=== PATIENT | female | born 1990 | race Caucasian/White ===

== ENCOUNTER 2020-09-29 20:20 | Inpatient (IN) | payer MEDICAID, SELFPAY ==
[2020-09-29] VITALS (11 sets, daily range): BP systolic 118–157; BP diastolic 66–108; PULSE 100–137; RESP 18; TEMP 36.9–37.5; O2SAT 97; BMI 28.0
[2020-09-29] MEDS: Oxytocin 30 units/NS 500 ml 30 UNITS/500 ML IV.SOLN 334 UNITS IV (21:15)
[2020-09-29 21:42] LABS: Absolute Lymphocyte Count 1.03 X10^3/uL (0.83-4.51); Absolute Neutrophil Count 13.8 X10^3/uL (2.0-7.7); Basophil# 0.02 X10^3/uL; Basophil% 0.1 % (0-1); Eosinophil# 0.01 X10^3/uL; Eosinophils% 0.1 % (0-5); Hematocrit 33.1 % (37-47); Lymphocyte # 1.03 X10^3/ul (4.0); Lymphocyte % 6.6 % (19-41); Mean Corp Hgb Conc 33.2 g/dL (32-36); Mean Corpuscular Hgb 30.6 pg (27.0-32.0); Mean Corpuscular Volume 91.9 fL (81-99); Mean Platelet Vol. 10.7 fl (6.2-12.0); Monocyte# 0.64 X10^3/uL; Monocyte% 4.1 % (0-10); NRBC Flagged by Analyzer 0 % (0-5); Neutrophil # 13.81 X10^3/uL (2.7-7.7); Neutrophil % 88.7 % (47-70); Platelet Count 263 K/mm3 (150-450); RBC Distribution Width CV 12.6 % (11.6-14.6); RBC Distribution Width SD 41.7 fl (35.1-43.9); White Blood Count 15.6 K/mm3 (4.4-11.0)
--- NOTE | 2020-09-29 21:44 | PCM.HPOB.BLA ---
History and Physical Date of Admission: 09/29/20 Chief complaint: Home spontaneous vaginal delivery History of present illness: 30-year-old at 37 weeks and 6 days with MAGAN: 10/14/2020 arrives after delivery of male infant at home. Along with delivery of placenta soon after at home upon arrival of EMS. Patient with low back pain and cramping feeling of the need to go to the bathroom. Patient did not realize she was in labor. Denies chest pain, shortness of breath, nausea vomiting, headache, visual changes, right upper quadrant pain. Obstetric history: G1: Term G2: Term G3: Current Past medical history: Anxiety depression, PTSD Opioid dependence Past surgical history: Cholecystectomy LEEP Medications: vitamin Allergies: Amoxicillin (hives) Family history: Denies a history of DVT/PE Social history: Daily opioid user, used heroin this morning. Uses THC. Smoker three quarters of a pack per day. Denies alcohol use Review of systems: Besides the above pertinent positives a full review of systems was performed and found to be negative Physical exam: Vital Signs Pulse BP 09/29/20 21:45 116 H 140/87 H 09/29/20 21:28 120 H 128/89 H 09/29/20 21:13 116 H 131/89 H General: Normal-appearing no acute distress HEENT: Normocephalic atraumatic no cervical lymphadenopathy Cardiac: Regular rate and rhythm no murmurs rubs or gallops Respiratory: Clear to auscultation bilaterally no wheezes or crackles Abdomen: Soft, nontender, fundus firm and below umbilicus. Positive bowel sounds. No rebound tenderness or guarding Pelvic exam: Normal external genitalia, no obstetrical tears noted perineum intact. No periurethral tears, urethra intact. Minimal bleeding. Extremities: No peripheral edema normal peripheral pulses Psych: Normal affect normal demeanor nonpressured speech Diagnostic testing: Bedside ultrasound reveals thin endometrial stripe, Doppler negative for flow and endometrium. No large masses or clots noted panel per [facility] 05/24/2020: B positive antibody negative, RPR nonreactive, HIV negative, rubella immune Assessment and plan: 30-year-old had a home delivery of a term male . To deliver placenta at home also. According to EMS time of was 1934 and time of placenta was 1999. based on physical exam no obstetrical tears, no signs of retained products, uterus firm. Will admit to labor and delivery continue to monitor mom and baby. Run Pitocin per protocol. Poor care, seen in [place], will obtain records. Patient desires tubal ligation; offered Nexplanon, Depo, progesterone only pill, OCP. Patient states hair loss with hormonal contraception. Discussed and educated on tubal along with copper IUD. To follow-up at visit. Will obtain panel, step down nurse to see baby. We will continue to monitor signs of opioid withdrawal, social service consult to be placed.
--- NOTE | 2020-09-29 21:58 | PCM.OPRPT ---
Vaginal Delivery Maternal Presentation: - - Spontaneous delivery at home Patient arrived via squad after delivering baby and placenta at home. Per EMS time of delivery was 1933 and time of delivery of placenta was 1999. Patient with lower back pain feelings need to go the bathroom, did not realize she was in labor. Soon after delivered. And delivery placenta upon standing at the arrival of EMS team. Final MAGAN: 10/14/20 - Unknown how MAGAN was confirmed. Care in [place], records Gestational age: 37 Weeks and 6 Days Date of Procedure: 09/29/20 Pre-Operative Diagnosis: Term Post-Operative Diagnosis: Term Surgery/ Procedure Performed: Spontaneous Vaginal Delivery Type of Anesthesia: None Description of Procedure: No procedure performed as patient delivered baby and placenta at home. No Apgars or EBL is noted. Please refer to the above 'Maternal Presentation'. Upon examination after arrival to the hospital; no obstetrical lacerations noted bleeding minimal to none. Uterus firm and below umbilicus. Bedside ultrasound shows endometrial stripe, negative color Doppler. Placenta intact. Placental Delivery Description: Spontaneous - At home Cord Vessel Description: 3 Vessels Estimated Blood Loss: Unknown Infant A gender: Male Medications given after delivery: IV Pitocin
--- NOTE | 2020-09-29 22:05 | DCINST_ITS ---
Discharge Diet: No Restrictions Discharge Activity: Return to Normal Activity, May Drive, May not drive while taking narcotic pain medications., May Shower May resume sexual activity in: 2 weeks Weight Bearing Status: Weight bearing as tolerated Call your doctor if your incision/area has: Foul Smelling Discharge Call your doctor if you observe: Fever of 101 or Higher, Shortness of breath, Chest pain Additional Instructions: If you experience any of the following, contact your healthcare provider. * Bleeding that soaks a pad every hour for 2 hours * Fever 100.4 or higher * Unrelieved incision or abdominal pain * Swelling, redness, discharge or bleeding from your incision or episiotomy site * Your incision begins to separate * Problems urinating (including inability to urinate or burning while urinating). * Visual changes * Severe headache * Flu-like symptoms * Pain or redness in one of both of your breasts * Pain, warmth, tenderness or swelling in your legs, especially the calf area * Frequent nausea and vomiting * Symptoms of depression or anxiety If you experience any of the following, call 911 or go to the nearest Emergency Room. * Chest pain * Problems breathing * Seizure activity * Partial or complete paralysis of a body part, slurred speech, weakness or drooping of the face, or a sudden inability to walk or hold your balance Allergies/Adverse Reactions: Allergies amoxicillin [From Augmentin] Allergy (Verified 09/29/20 21:06) Hives clavulanic acid [From Augmentin] Allergy (Verified 09/29/20 21:06) Hives Medications to take at Discharge Vits [Prenatabs FA] 1 tab PO DAILY 09/29/20 Please Follow Up With: Bear Navarro MD When: 2-3 weeks Primary Care Physician: Care Physician,No Primary [Primary Care Provider] - Test Results: Test results from this visit will be discussed in further detail at your follow- up appointment, if applicable. Proposed Discharge Date: 09/30/20
--- NOTE | 2020-09-29 22:05 | PCM.DCVAG ---
Discharge Diet: No Restrictions Discharge Activity: Return to Normal Activity, May Drive, May not drive while taking narcotic pain medications., May Shower May resume sexual activity in: 2 weeks Weight Bearing Status: Weight bearing as tolerated Call your doctor if your incision/area has: Foul Smelling Discharge Call your doctor if you observe: Fever of 101 or Higher, Shortness of breath, Chest pain Additional Instructions: If you experience any of the following, contact your healthcare provider. Bleeding that soaks a pad every hour for 2 hours Fever 100.4 or higher Unrelieved incision or abdominal pain Swelling, redness, discharge or bleeding from your incision or episiotomy site Your incision begins to separate Problems urinating (including inability to urinate or burning while urinating). Visual changes Severe headache Flu-like symptoms Pain or redness in one of both of your breasts Pain, warmth, tenderness or swelling in your legs, especially the calf area Frequent nausea and vomiting Symptoms of depression or anxiety If you experience any of the following, call 911 or go to the nearest Emergency Room. Chest pain Problems breathing Seizure activity Partial or complete paralysis of a body part, slurred speech, weakness or drooping of the face, or a sudden inability to walk or hold your balance Allergies/Adverse Reactions: Allergies amoxicillin [From Augmentin] Allergy (Verified 09/29/20 21:06) Hives clavulanic acid [From Augmentin] Allergy (Verified 09/29/20 21:06) Hives Medications to take at Discharge Vits [Prenatabs FA] 1 tab PO DAILY 09/29/20 Please Follow Up With: Bear Navarro MD When: 2-3 weeks Primary Care Physician: Care Physician,No Primary [Primary Care Provider] - Test Results: Test results from this visit will be discussed in further detail at your follow-up appointment, if applicable. Proposed Discharge Date: 09/30/20
[2020-09-29] MEDS: Ibuprofen 600 MG Tablet PO (22:31)
[2020-09-29 22:57] LABS: HIV - WCH Non-Reactive (Nonreactive); Hepatitis B Surface Antigen Non-Reactive (Nonreactive)
--- NOTE | 2020-09-29 23:04 | NURSING ---
Patient states that she does not have custody of older children, daughters Carl and Wagner, 10 year old and 5 year old, they both live with their fathers. Patient states that she sees younger daughter regularly.
[2020-09-29] MEDS: 0.9% Saline Lock 10 ML Syringe IV (23:49)
[2020-09-30] VITALS (12 sets, daily range): BP systolic 134–158; BP diastolic 84–113; PULSE 76–108; RESP 14–20; TEMP 36.5–36.7; O2SAT 98–100; BMI 26.2; BMI 26.3
[2020-09-30 00:10] LABS: Hepatitis C Antibody REACTIVE (Nonreactive)
[2020-09-30 01:30] LABS: Amphetamine Urine VISTA POSITIVE (<1000 ng/mL); Barbiturate Urine VISTA NEGATIVE (< 200 ng/mL); Benzodiazepine Urine VISTA NEGATIVE (< 200 ng/mL); Cocaine Urine VISTA NEGATIVE (< 300 ng/mL); Ecstacy Urine VISTA POSITIVE (< 500 ng/mL); Methadone Urine VISTA NEGATIVE (< 300 ng/mL); PCP Urine VISTA NEGATIVE (< 25 ng/mL); THC Urine VISTA POSITIVE (< 50 ng/mL); Vista UDS pH Range 6
--- NOTE | 2020-09-30 01:44 | NURSING ---
Patient reports that her legs are getting restless and that she feels like she is withdrawing. Telephone order received to administer Ativan 1 mg IV x1. Also, send placenta for studies per Dr. Navarro.
[2020-09-30] MEDS: LORazepam 2 MG/ML Syringe 1 MG IV (02:06)
[2020-09-30] MEDS: 0.9% Saline Lock 10 ML Syringe IV (02:06)
[2020-09-30] MEDS: Ibuprofen 600 MG Tablet PO ×2 (04:12→15:35)
[2020-09-30 09:09] LABS: Absolute Lymphocyte Count 1.76 X10^3/uL (0.83-4.51); Absolute Neutrophil Count 8.7 X10^3/uL (2.0-7.7); Basophil# 0.02 X10^3/uL; Basophil% 0.2 % (0-1); Eosinophil# 0.05 X10^3/uL; Eosinophils% 0.4 % (0-5); Hematocrit 32.7 % (37-47); Hemoglobin 10.6 g/dL (12.0-15.0); Lymphocyte # 1.76 X10^3/ul (4.0); Lymphocyte % 15.6 % (19-41); Mean Corp Hgb Conc 32.4 g/dL (32-36); Mean Corpuscular Hgb 30.3 pg (27.0-32.0); Mean Corpuscular Volume 93.4 fL (81-99); Mean Platelet Vol. 10.3 fl (6.2-12.0); Monocyte# 0.69 X10^3/uL; Monocyte% 6.1 % (0-10); NRBC Flagged by Analyzer 0 % (0-5); Neutrophil # 8.72 X10^3/uL (2.7-7.7); Neutrophil % 77.3 % (47-70); Platelet Count 228 K/mm3 (150-450); RBC Distribution Width CV 12.8 % (11.6-14.6); RBC Distribution Width SD 43.1 fl (35.1-43.9); White Blood Count 11.3 K/mm3 (4.4-11.0)
[2020-09-30 10:23] LABS: Rubella IgG Reactive (Nonreactive)
--- NOTE | 2020-09-30 10:44 | PCM.PN.OB ---
Subjective: No overnight complaints. Pain well controlled. Minimal lochia. Patient overnight felt some restless legs agitation and anxiety feelings of opiate withdrawal. Now minimal agitation after Ativan - Physical Exam Vitals/I&O's: Vital Signs Temp Pulse Resp BP Pulse Ox 98.1 F 94 16 138/93 H 98 09/30/20 08:17 09/30/20 08:17 09/30/20 08:17 09/30/20 08:17 09/30/20 08:17 Oxygen Delivery Method Room Air Weight: 190 lb Body Mass Index (BMI) 28.0 Intake and Output for Last 24 Hours 09/28/20 09/29/20 09/30/20 23:59 23:59 23:59 Intake Total 500 / 500 Balance 500 / 500 General: Alert, Oriented x3, Cooperative, No apparent distress HEENT: Atraumatic, PERRLA, Normocephalic Oral: Moist Mucosa Neck: Supple Abdomen: Bowel Sounds Present, Soft, Non Tender, Gravid - Fundus is firm and below umbilicus Extremities: No clubbing, No cyanosis, No edema Psych/Mental Status: Normal Affect, Appropriate, Alert and oriented to time, place, person, mood and affect Laboratory Results 09/29/20 00:11: HCV RNA Quant (PCR) Pending 09/29/20 21:15: WBC 15.6 H, RBC 3.60 L, Hgb 11.0 L, Hct 33.1 L, MCV 91.9, MCH 30.6, MCHC 33.2, RDW Std Deviation 41.7, RDW Coeff of Vishnu 12.6, Plt Count 263, MPV 10.7, Immature Gran % (Auto) 0.400, Neut % (Auto) 88.7 H, Lymph % (Auto) 6.6 L, Latimer % (Auto) 4.1, Eos % (Auto) 0.1, Baso % (Auto) 0.1, Absolute Neuts (auto) 13.8 H, Absolute Lymphs (auto) 1.03, Nucleated RBC % 0 09/29/20 21:15: Rubella IgG Antibody Reactive 09/29/20 21:15: RPR Pending 09/29/20 21:15: Blood Type B POSITIVE, Antibody Screen NEGATIVE 09/29/20 21:15: Hep Bs Antigen Non-Reactive, Hepatitis C Antibody REACTIVE, HIV 1&2 Antibody Non-Reactive 09/30/20 01:00: Urine Opiates Screen NEGATIVE, Urine Methadone Screen NEGATIVE, Ur Barbiturates Screen NEGATIVE, Ur Phencyclidine Scrn NEGATIVE, Ur Amphetamines Screen POSITIVE H, U Methamphetamin-MDMA POSITIVE H, U Benzodiazepines Scrn NEGATIVE, Urine Cocaine Screen NEGATIVE, U Cannabinoids Screen POSITIVE H, Ur Drug Screen Comment 09/30/20 01:00: U Amphetamines Confirm Pending 09/30/20 08:51: WBC 11.3 H, RBC 3.50 L, Hgb 10.6 L, Hct 32.7 L, MCV 93.4, MCH 30.3, MCHC 32.4, RDW Std Deviation 43.1, RDW Coeff of Vishnu 12.8, Plt Count 228, MPV 10.3, Immature Gran % (Auto) 0.400, Neut % (Auto) 77.3 H, Lymph % (Auto) 15.6 L, Latimer % (Auto) 6.1, Eos % (Auto) 0.4, Baso % (Auto) 0.2, Absolute Neuts (auto) 8.7 H, Absolute Lymphs (auto) 1.76, Nucleated RBC % 0 Current Medications Acetaminophen (Acetaminophen 500 Mg Tablet) 1,000 mg PO Q8H PRN PRN PRN Reason: Pain Score 1-3 Bisacodyl (Bisacodyl 10 Mg Suppository) 10 mg RECTAL UD PRN PRN Reason: If no BM Dibucaine (Dibucaine 30 Gm Tube) 1 applic TOPICAL TID PRN PRN; Protocol PRN Reason: Discomfort Hydrocortisone (Hydrocortisone 2.5% Crm) 1 applic TOPICAL TID PRN PRN; Protocol PRN Reason: Discomfort Lactated Ringer's () 500 mls @ 999 mls/hr IV .Q31M PRN PRN Reason: Epidural Lactated Ringer's () 500 mls @ 999 mls/hr IV .Q31M PRN PRN Reason: Corrective Measures Ibuprofen (Ibuprofen 600 Mg Tablet) 600 mg PO Q6H PRN PRN PRN Reason: Pain Score 1-3 Last Admin: 09/30/20 04:12 Dose: 600 mg Documented by: Ondansetron HCl (Ondansetron 4 Mg/2 Ml Vial) 4 mg IV Q4H PRN PRN PRN Reason: Nausea Senna/Docusate Sodium (Senna/Docusate Sodium 1 Tablet) 1 - 2 tablet PO DAILY PRN PRN PRN Reason: Constipation Simethicone (Simethicone 80 Mg Tablet) 80 mg PO PCHS PRN PRN Reason: Indigestion/Stomach pain Sodium Chloride (0.9% Saline Lock 10 Ml Syringe) 5 - 15 ml IV UD PRN PRN Reason: SALINE FLUSH Last Admin: 09/30/20 02:06 Dose: 10 ml Documented by: Sodium Chloride (0.9% Saline Lock 10 Ml Syringe) 10 - 40 ml IV X1 PRN PRN Reason: SALINE FLUSH Medical Necessity - Tobacco Use Smoking Status: Light Smoker (<10/day) Assessment/Plan day 1 status post spontaneous vaginal delivery at home. Pain well controlled. Bottlefeeding. COWS score 4. Discussed opiate use, patient feels improved after Ativan. Discussed buprenorphine and naloxone to prevent opioid withdrawal. Patient would like to discussed with social work about inpatient detoxification program. Cabana Attendant suggest 7-day stay for baby for monitoring. Patient okay to discharge home or moved to start hotel status at any point, recovery in a stable condition. Based on patient's decisions and options for living, as patient is losing home on 09/01/2020, and decision on opiate detoxification program will decide medication/discharge plan.
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
--- NOTE | 2020-09-30 12:30 | NURSING ---
patient cry and rocking back and forth on bed. states, my skin feels like it's crawling, i feel anxious and angry. i just want to feel mellow. emotional support provided by this nurse. dr. veronica lim updated on patient's condition. see xanax order. will continue to monitor.
[2020-09-30] MEDS: ALPRAZolam 0.5 MG Tablet 1 MG PO (12:50)
--- NOTE | 2020-09-30 18:00 | CASEMGMT ---
Social Work Note Labor and Delivery Unit Reason for Intervention: Communication with [facility] Syeda Judge ([phone]; [phone]); Collaboration with nursing, OBGYN, and pediatrics; ongoing work with MOB to help determine next steps in care. Summary: Spoke with Syeda Judge regarding patient/mother of baby (MOB) and infant. [facility] already screened in case for investigation, but accepted additional report information from this remote mortgage underwriter (a mandated cut off machine operator). Brief maternal and histories provided. Drug screen results provided, updated to baby's CRUZ scores, and discussion with MOB about possibly entering a detox program. Lars to come to hospital t see MOB today. Met with MOB in room. MOB reported to be leaning towards detox, but wants to talk a bit further with her father and also with children services. Release of information signed by MOB to [facility]. Spoke with Yudy at [facility] for the RAMP program. If MOB admits to RAMP someone can see over the weekend. There is possibility for residential availability should MOB agree to and need this level of care. [facility] to unit to see MOB. After meeting, this remote mortgage underwriter spoke with Syeda who reports MOB and baby to be referred to the START program through [facility]. [place] Judge reports intent at this times is to remove baby when the baby is ready for discharge. This remote mortgage underwriter learned from [facility] that baby has been admitted to the [facility]. Updated [place] Judge to this as well. This remote mortgage underwriter received a call later in the afternoon from Adrienne Noriega at [facility] reporting concern that MOB allegedly making calls in the community asking for drugs to be smuggled into the hospital. This information passed along to this remote mortgage underwriter for safety matters on the unit. This remote mortgage underwriter met with MOB several times this afternoon to provide support as well as to help work through MOB's intentions for own recovery. This remote mortgage underwriter gently confronted MOB about the alert this remote mortgage underwriter received from [facility]. Reviewed with MOB the rules of the hospital and that active substance use is not allowed, that staff is actively trying to work with MOB to get MOB help (if this is what MOB wants) but that staff also have to look at the overall safety of the unit. After much discussion with MOB, MOB agreed to enter the hospital's RAMP program for detox. This remote mortgage underwriter reviewed rules and expectations to enter the program. Also discussed with MOB that while in detox will not be allowed to leave the medical unit to go to SCN (had discussed with senior quality manager of the medical unit the protocols for RAMP patients). Discussed that MOB can see and hold baby before going into RAMP and then can work it out to see baby again when discharged from the RAMP program. Called Yudy at [facility] and left message. [facility] treatment nav[facility], Liza, and provided official referral. Liza will see MOB on 10.01.2020 for assessment. Updated [facility] that children services is involved, as well as MOB inquiring about baby being allowed at the residential facility, though that MOB is aware of [facility] current intent to remove . This remote mortgage underwriter inquired whether MOB will be able to visit baby while in residential, if this is what MOB decides to do once detox is completed. Liza agrees to assess situation. This remote mortgage underwriter collaborated with OBGYN Dr. Bear Navarro and nursing staff through out the day today. Updated pediatrics as well. Assessment: MOB continues to be cooperative with social media director and staff. Visibly emotional throughout the day, crying and discussing emotions related to drug use, how the rest of the family will respond to MOB, and how baby is being impacted by maternal drug use in . MOB voiced several times remorse for impact to baby regarding MOB's drug use and now being in the SCN. Much emotional support offered to MOB this date, redirection efforts to keep MOB focused on own self care, and how self care and recovery can potentially impact MOB's life in a positive way. Empowered MOB to make own decisions while also setting clear boundaries regarding hospital rules and protocols. Plan: Baby is in the SCN for care and treatment of escalating CRUZ scores. Social work will follow baby in the SCN for appropriate disposition. MOB is agreeing to enter the RAMP program and see about aftercare recommendations once detox is completed. -NJ Roach, CADASTRAL SURVEYOR
--- NOTE | 2020-09-30 18:42 | HP.PCM_ITS ---
Problem List (1) Tobacco abuse Status: Chronic (2) Acute opioid withdrawal Status: Acute (3) Status post vaginal delivery Status: Acute (4) Opioid dependence Status: Chronic History of Present Illness Date of Admission: 09/30/20 Chief Complaint: Acute opiate withdrawal. The patient is a 30 year old F with past medical history as mentioned above who had normal vaginal delivery yesterday, had a history of opioid dependence and she requested admission to the medical floor for acute opioid withdrawal for medical stabilization. Patient delivered yesterday and her baby is having acute opiate withdrawal and has been on IV morphine drip. She expressed her interest in going into detoxification program. She states that she has been using IV heroin daily over the last 10 years and her last use was yesterday morning. She admitted smoking marijuana occasionally. Her symptoms are body aches and pains, all over, generalized, mild pain, associated with anxiety and restlessness and without aggravating or relieving factors. She mentioned that she went to opiate withdrawal treatment as outpatient but never for acute detoxification. She mentioned that she still having minimal vaginal bleeding. Denies significant abdominal pain. Her vital signs are stable, afebrile. CBC from today reviewed, revealed mild leukocytosis, hemoglobin of 10.6 g deciliter. Urine drug screen was positive for amphetamines, methamphetamines and cannabinoids. She is being transferred to [facility] floor for acute opioid withdrawal for medical stabilization. Past Medical History Past Medical History (Chronic Problems): Chronic Problems Tobacco abuse (Chronic) Opioid dependence (Chronic) Allergies amoxicillin [From Augmentin] Allergy (Verified 09/29/20 21:06) Hives clavulanic acid [From Augmentin] Allergy (Verified 09/29/20 21:06) Hives Home Medications: Ambulatory Orders Medication Instructions Recorded Vits [Prenatabs FA] 1 tab PO DAILY 09/29/20 Surgical History: cholecystectomy Psychiatric History: No pertinent psych hx BOILER/CHILLER TECHNICIAN History: No pertinent BOILER/CHILLER TECHNICIAN history Smoking Status: Light Smoker (<10/day) Tobacco Use: Cigarettes Alcohol: None Drugs: Heroin - *Family History Maternal History Items: No pertinent history Paternal History Items: No pertinent history Review of Systems Constitutional: Denies: Anorexia, Chills, Fever, Weakness Eyes: Denies: Blurred vision, Double vision, Drainage, Redness HEENT: Denies: Difficulty Hearing, Ear Pain, Eye Pain, Nasal Congestion, Sore Throat Cardiovascular: Denies: Chest Pain, Chest Pressure, Edema, Heaviness, Light Headedness, Palpitations, Syncope Respiratory: Denies: Cough, Hemoptysis, Pleuritic Pain, Shortness of Breath, Sputum production, Wheezing Gastrointestinal: Denies: Abdominal Pain, Constipation, Diarrhea, Nausea, Vomiting Genitourinary: Denies: Dysuria, Frequency, Hematuria Gynecological: Reports: Vaginal bleeding Musculoskeletal: Denies: Arm Pain, Back Pain, Foot Pain Skin: Denies: Dryness, Rash Neurological: Denies: Balance problems, Blurred vision, Double vision, Change in Speech, Slurred speech, Confusion, Headaches, Incoordination Psychiatric: Denies: Anxiety, Depression Endocrine: Denies: Change in Body Habitus, Polydipsia, Polyuria VTE Information - Inpt Only VTE Present on Admission: No VTE Mechan Device Prophylaxis: None VTE Pharm Prophylaxis ordered?: No - Physical Exam Vitals/I&O's: Vital Signs Temp Pulse Resp BP Pulse Ox 97.9 F 91 18 139/88 H 100 09/30/20 15:37 09/30/20 15:37 09/30/20 15:37 09/30/20 15:37 09/30/20 15:37 Oxygen Delivery Method Room Air Weight: 190 lb Body Mass Index (BMI) 28.0 Intake and Output for Last 24 Hours 09/28/20 09/29/20 09/30/20 23:59 23:59 23:59 Intake Total 500 / 500 Balance 500 / 500 General: Alert, Oriented x3, Cooperative, No apparent distress HEENT: Atraumatic, PERRLA, EOMI, Normocephalic Oral: Moist Mucosa, No Gingival or Mucosal Lesions/ Ulcerations Neck: Supple, No JVD, Negative Carotid Bruits, Trachea Midline, Thyroid Normal Size and Texture Lungs: Clear to auscultation, Normal air movement, No rhonchi, No wheeze, No rales Cardiovascular: Regular rate, Regular Rhythm, Normal S1, Normal S2, PMI Normal Abdomen: Bowel Sounds Present, Soft, Non Tender, Non-Distended, No Hepato- splenomegaly Extremities: No clubbing, No cyanosis, Edema Skin: No rashes, No breakdown Lymphatic: No Cervical, Supraclavicular, or Inguinal Adenopathy Neurological: Cranial nerves II-XII grossly intact, Motor Exam 5/5 strength throughout Psych/Mental Status: Normal Affect, Appropriate Laboratory Results 09/29/20 00:11: HCV RNA Quant (PCR) Pending 09/29/20 21:15: WBC 15.6 H, RBC 3.60 L, Hgb 11.0 L, Hct 33.1 L, MCV 91.9, MCH 30.6, MCHC 33.2, RDW Std Deviation 41.7, RDW Coeff of Vishnu 12.6, Plt Count 263, MPV 10.7, Immature Gran % (Auto) 0.400, Neut % (Auto) 88.7 H, Lymph % (Auto) 6.6 L, Norman % (Auto) 4.1, Eos % (Auto) 0.1, Baso % (Auto) 0.1, Absolute Neuts (auto) 13.8 H, Absolute Lymphs (auto) 1.03, Nucleated RBC % 0 09/29/20 21:15: Rubella IgG Antibody Reactive 09/29/20 21:15: RPR Pending 09/29/20 21:15: Blood Type B POSITIVE, Antibody Screen NEGATIVE 09/29/20 21:15: Hep Bs Antigen Non-Reactive, Hepatitis C Antibody REACTIVE, HIV 1&2 Antibody Non-Reactive 09/30/20 01:00: Urine Opiates Screen NEGATIVE, Urine Methadone Screen NEGATIVE, Ur Barbiturates Screen NEGATIVE, Ur Phencyclidine Scrn NEGATIVE, Ur Amphetamines Screen POSITIVE H, U Methamphetamin-MDMA POSITIVE H, U Benzodiazepines Scrn NEGATIVE, Urine Cocaine Screen NEGATIVE, U Cannabinoids Screen POSITIVE H, Ur Drug Screen Comment 09/30/20 01:00: U Amphetamines Confirm Pending 09/30/20 08:51: WBC 11.3 H, RBC 3.50 L, Hgb 10.6 L, Hct 32.7 L, MCV 93.4, MCH 30.3, MCHC 32.4, RDW Std Deviation 43.1, RDW Coeff of Vishnu 12.8, Plt Count 228, MPV 10.3, Immature Gran % (Auto) 0.400, Neut % (Auto) 77.3 H, Lymph % (Auto) 15.6 L, Norman % (Auto) 6.1, Eos % (Auto) 0.4, Baso % (Auto) 0.2, Absolute Neuts (auto) 8.7 H, Absolute Lymphs (auto) 1.76, Nucleated RBC % 0 Current Medications Acetaminophen (Acetaminophen 500 Mg Tablet) 1,000 mg PO Q8H PRN PRN PRN Reason: Pain Score 1-3 Bisacodyl (Bisacodyl 10 Mg Suppository) 10 mg RECTAL UD PRN PRN Reason: If no BM Dibucaine (Dibucaine 30 Gm Tube) 1 applic TOPICAL TID PRN PRN; Protocol PRN Reason: Discomfort Hydrocortisone (Hydrocortisone 2.5% Crm) 1 applic TOPICAL TID PRN PRN; Protocol PRN Reason: Discomfort Lactated Ringer's () 500 mls @ 999 mls/hr IV .Q31M PRN PRN Reason: Epidural Lactated Ringer's () 500 mls @ 999 mls/hr IV .Q31M PRN PRN Reason: Corrective Measures Ibuprofen (Ibuprofen 600 Mg Tablet) 600 mg PO Q6H PRN PRN PRN Reason: Pain Score 1-3 Last Admin: 09/30/20 15:35 Dose: 600 mg Documented by: Ondansetron HCl (Ondansetron 4 Mg/2 Ml Vial) 4 mg IV Q4H PRN PRN PRN Reason: Nausea Senna/Docusate Sodium (Senna/Docusate Sodium 1 Tablet) 1 - 2 tablet PO DAILY PRN PRN PRN Reason: Constipation Simethicone (Simethicone 80 Mg Tablet) 80 mg PO PCHS PRN PRN Reason: Indigestion/Stomach pain Sodium Chloride (0.9% Saline Lock 10 Ml Syringe) 5 - 15 ml IV UD PRN PRN Reason: SALINE FLUSH Last Admin: 09/30/20 02:06 Dose: 10 ml Documented by: Sodium Chloride (0.9% Saline Lock 10 Ml Syringe) 10 - 40 ml IV X1 PRN PRN Reason: SALINE FLUSH Assessment/Plan All Active Problems Acute opioid withdrawal (Acute) Status post vaginal delivery (Acute) This is a 30 years old female patient who admitted after she had normal vaginal delivery at home, [facility], had a history of opioid dependence, has been going through withdrawal symptoms and she requested admission for acute opioid withdrawal for medical stabilization. #1 acute opiate withdrawal: Patient has been using IV heroin over the last 3 years. Urine drug screen was positive for amphetamines, methamphetamines and cannabinoids. CBC reviewed as above. Her vital signs are stable. Plan: Admit to [facility], initiate opioid withdrawal protocol with tapering Subutex, as needed Catapres, Bentyl, Neurontin, Vistaril, Imodium, methocarbamol, Zofran and trazodone, consult 180 program. #2 status post normal vaginal delivery: Currently, she still having minimal vaginal bleeding. Abdominal examination is benign, stable. We will consult SET OFF PRESS OPERATOR if needed. #3 tobacco abuse: NicoDerm patch. #4 DVT prophylaxis: Low risk patient, no prophylaxis indicated. This note was generated with [employer] dictation software. It may contain incorrect words, spelling, and punctuation that were not noted in checking the note before signing. Inpatient E&M: 95158 Init Hosp L2
[2020-09-30 21:46] LABS: ALB/GLOB Ratio 0.5 RATIO (0.9-2.4); AST(SGOT) 24 U/L (15-37); Alanine Aminotransfer ALT/SGPT 13 U/L (13-56); Alkaline Phosphatase 189 U/L (45-117); Anion Gap 3 (5-15); BUN 11 mg/dL (7-18); BUN/Creat Ratio 13.9 RATIO (10-20); Calcium,Total 8.7 mg/dL (8.5-10.1); Chloride 111 mmol/L (98-107); Creatinine, Serum 0.79 mg/dL (0.55-1.02); EST Glomerular Filtration Rate 90 mL/min (>60); Est Glom Filt Rate - Afr Amer 109 mL/min (>60); Estimated Creatinine Clearance 107.83 ml/min; Globulin 4.1 g/dL (2.2-4.2); Glucose 78 mg/dL (74-106); Potassium 4.2 mmol/L (3.5-5.1); Protein, Total 6.1 g/dL (6.4-8.2); Sodium Level 140 mmol/L (136-145)
[2020-09-30] MEDS: Acetaminophen 500 MG Tablet PO (22:16)
[2020-09-30] MEDS: traZODone 100 MG Tablet PO (22:16)
[2020-09-30] MEDS: Methocarbamol 750 MG Tablet 1500 MG PO (22:16)
[2020-09-30] MEDS: Buprenorphine HCl 2 MG TAB.SUBL SL (23:21)
[2020-10-01] MEDS: hydrOXYzine PAM 25 MG Capsule 50 MG PO ×3 (00:56→16:47)
[2020-10-01 02:15] VITALS: BP 127/90; PULSE 64; RESP 14; TEMP 36.3; O2SAT 100
[2020-10-01] MEDS: Buprenorphine HCl 2 MG TAB.SUBL SL ×3 (05:50→21:46)
[2020-10-01] MEDS: Methocarbamol 750 MG Tablet 1500 MG PO ×3 (05:50→21:46)
[2020-10-01] MEDS: Ondansetron 8 MG Tablet PO (05:54)
[2020-10-01] MEDS: Acetaminophen 325 MG Tablet 650 MG PO ×2 (09:57→21:45)
--- NOTE | 2020-10-01 10:07 | NURSING ---
Dr. Pandey saw patient, she is emotional and tearful about not being able to see her baby. Dr. De La Torre wants nursing staff to arrange mom to see her baby. feels patient is too emotional to focus on herself and needs to greene with her baby.
[2020-10-01 13:54] VITALS: BP 148/93; PULSE 79; RESP 14; TEMP 36.9; O2SAT 99
[2020-10-01] MEDS: Dicyclomine 10 MG Capsule 20 MG PO (14:01)
[2020-10-01] MEDS: Gabapentin 300 MG Capsule PO (14:02)
--- NOTE | 2020-10-01 15:05 | PN_ITS ---
Patient Problems: Active and Suspected Problems Acute opioid withdrawal (Acute) Status post vaginal delivery (Acute) Reason for Visit: Follow-up on acute opioid withdrawal Subjective: Patient was seen and examined. No acute events. Patient is tearful. Her baby remains being monitored on morphine in the [facility] for acute opioid withdrawal. Objective: Physical exam: General: Alert, Oriented x3, Cooperative, No apparent distress HEENT: Atraumatic, PERRLA, EOMI, Normocephalic Oral: Moist Mucosa, No Gingival or Mucosal Lesions/ Ulcerations Neck: Supple, No JVD, Negative Carotid Bruits, Trachea Midline, Thyroid Normal Size and Texture Lungs: Clear to auscultation, Normal air movement, No rhonchi, No wheeze, No rales Cardiovascular: Regular rate, Regular Rhythm, Normal S1, Normal S2, PMI Normal Abdomen: Bowel Sounds Present, Soft, Non Tender, Non-Distended, No Hepato- splenomegaly Extremities: No clubbing, No cyanosis, Edema Skin: No rashes, No breakdown Lymphatic: No Cervical, Supraclavicular, or Inguinal Adenopathy Neurological: Cranial nerves II-XII grossly intact, Motor Exam 5/5 strength throughout Psych/Mental Status: Normal Affect, Appropriate Vitals/I&O's: Vital Signs Temp Pulse Resp BP Pulse Ox 98.5 F 79 14 148/93 H 99 10/01/20 13:54 10/01/20 13:54 10/01/20 13:54 10/01/20 13:54 10/01/20 13:54 Oxygen Delivery Method Room Air Weight: 80.739 kg Body Mass Index (BMI) 26.2 Intake and Output for Last 24 Hours 09/29/20 09/30/20 10/01/20 23:59 23:59 23:59 Intake Total 500 / 500 480 / 480 Balance 500 / 500 480 / 480 Laboratory Results 09/30/20 20:58: Sodium 140, Potassium 4.2, Chloride 111 H, Carbon Dioxide 26.0, Anion Gap 3 L, BUN 11, Creatinine 0.79, Estim Creat Clear Calc 107.83, Est GFR (MDRD) Af Amer 109, Est GFR (MDRD) Non-Af 90, BUN/Creatinine Ratio 13.9, Glucose 78, Calcium 8.7, Total Bilirubin 0.20, AST 24, ALT 13, Alkaline Phosphatase 189 H, Total Protein 6.1 L, Albumin 2.0 L, Globulin 4.1, Albumin/Globulin Ratio 0.5 L Current Medications Acetaminophen (Acetaminophen 325 Mg Tablet) 650 mg PO Q6H PRN PRN PRN Reason: Pain Score 1-10 Last Admin: 10/01/20 09:57 Dose: 650 mg Documented by: Buprenorphine HCl (Buprenorphine Hcl 2 Mg Tab.Subl) 4 mg SL Q8H DANA; Taper Stop: 10/03/20 22:29 Last Admin: 10/01/20 13:56 Dose: 4 mg Documented by: Clonidine (Clonidine Hcl 0.1 Mg Tablet) 0.1 mg PO Q8H PRN PRN PRN Reason: RESTLESSNESS Dicyclomine HCl (Dicyclomine 10 Mg Capsule) 20 mg PO Q6H PRN PRN PRN Reason: Abdominal Discomfort Last Admin: 10/01/20 14:01 Dose: 20 mg Documented by: Gabapentin (Gabapentin 300 Mg Capsule) 300 mg PO Q8H PRN PRN PRN Reason: moderate to severe anxiety Last Admin: 10/01/20 14:02 Dose: 300 mg Documented by: Hydroxyzine Pamoate (Hydroxyzine Xochitl 25 Mg Capsule) 50 mg PO Q6H PRN PRN PRN Reason: mild anxiety Last Admin: 10/01/20 09:57 Dose: 50 mg Documented by: Loperamide HCl (Loperamide 2 Mg Capsule) 2 mg PO Q4H PRN PRN PRN Reason: LOOSE STOOLS Methocarbamol (Methocarbamol 750 Mg Tablet) 1,500 mg PO Q6H PRN PRN PRN Reason: MUSCLE SPASM Last Admin: 10/01/20 14:02 Dose: 1,500 mg Documented by: Nicotine (Nicotine 21 Mg Patch) 21 mg TRANSDERM. DAILY DANA Last Admin: 10/01/20 08:59 Dose: 21 mg Documented by: Ondansetron HCl (Ondansetron 8 Mg Tablet) 8 mg PO Q8H PRN PRN PRN Reason: NAUSEA Last Admin: 10/01/20 05:54 Dose: 8 mg Documented by: Trazodone HCl (Trazodone 100 Mg Tablet) 100 mg PO QHS PRN PRN PRN Reason: INSOMNIA Last Admin: 09/30/20 22:16 Dose: 100 mg Documented by: STROKE Vital Signs/Narrative: Vital Signs Temp Pulse Resp BP Pulse Ox 10/01/20 13:54 98.5 F 79 14 148/93 H 99 Medical Necessity - Tobacco Use Smoking Status: Current every day smoker Tobacco Use: Cigarettes Assessment/Plan All Active Problems Acute opioid withdrawal (Acute) Status post vaginal delivery (Acute) 1. Acute opioid withdrawal, patient admits to using heroin Urine tox positive for amphetamines, methamphetamines and cannabinoids Currently stable, on the buprenorphine withdrawal protocol 2. Status post vaginal delivery of baby on 09/30/20 Baby is being monitored for opioid withdrawal in the [facility] Would monitor for depression 3. Nicotine dependence, on dependence 4. DVT PPx - low risk, early ambulation Inpatient E&M: 45650 Subs Hosp L2
[2020-10-01 21:06] LABS: HCV log 10 6.845 (.)
[2020-10-01 21:40] VITALS: BP 145/90; PULSE 72; RESP 18; TEMP 37.1; O2SAT 98
[2020-10-01] MEDS: cloNIDine HCl 0.1 MG Tablet PO (21:58)
[2020-10-02 02:25] VITALS: BP 143/90; PULSE 78; RESP 18; TEMP 37; O2SAT 97
[2020-10-02] MEDS: hydrOXYzine PAM 25 MG Capsule 50 MG PO ×2 (02:29→10:01)
--- NOTE | 2020-10-02 02:35 | NURSING ---
Copy of pt's city route driver's license and insurance card sent to OB. These were requested for the use of her infant in the NICU. Bin with pt's belongings where her purse is was opened with the supercharger mechanic in the room. The pt was given her purse to provide needed cards. All was replaced in bin after copies were made and zip ties reapplied with supercharger mechanic.
[2020-10-02] MEDS: Methocarbamol 750 MG Tablet 1500 MG PO ×2 (06:05→14:46)
[2020-10-02] MEDS: Dicyclomine 10 MG Capsule 20 MG PO ×2 (06:05→14:44)
[2020-10-02] MEDS: Buprenorphine HCl 2 MG TAB.SUBL SL ×3 (06:05→22:23)
[2020-10-02] MEDS: Acetaminophen 325 MG Tablet 650 MG PO ×2 (06:05→17:13)
--- NOTE | 2020-10-02 07:34 | PN_ITS ---
Patient Problems: Active and Suspected Problems Acute opioid withdrawal (Acute) Status post vaginal delivery (Acute) Reason for Visit: Follow-up on acute opioid withdrawal Subjective: Patient was seen and examined. No acute events. She denies any new complains. Objective: Physical exam: General: Alert, Oriented x3, Cooperative, No apparent distress HEENT: Atraumatic, PERRLA, EOMI, Normocephalic Oral: Moist Mucosa, No Gingival or Mucosal Lesions/ Ulcerations Neck: Supple, No JVD, Negative Carotid Bruits, Trachea Midline, Thyroid Normal Size and Texture Lungs: Clear to auscultation, Normal air movement, No rhonchi, No wheeze, No rales Cardiovascular: Regular rate, Regular Rhythm, Normal S1, Normal S2, PMI Normal Abdomen: Bowel Sounds Present, Soft, Non Tender, Non-Distended, No Hepato- splenomegaly Extremities: No clubbing, No cyanosis, Edema Skin: No rashes, No breakdown Lymphatic: No Cervical, Supraclavicular, or Inguinal Adenopathy Neurological: Cranial nerves II-XII grossly intact, Motor Exam 5/5 strength thro ughout Psych/Mental Status: Normal Affect, Appropriate Vitals/I&O's: Vital Signs Temp Pulse Resp BP Pulse Ox 98.6 F 78 18 143/90 H 97 10/02/20 02:25 10/02/20 02:25 10/02/20 02:25 10/02/20 02:25 10/02/20 02:25 Oxygen Delivery Method Room Air Weight: 80.739 kg Body Mass Index (BMI) 26.2 Intake and Output for Last 24 Hours 09/30/20 10/01/20 10/02/20 23:59 23:59 22:59 Intake Total 480 / 480 780 / 780 Balance 480 / 480 780 / 780 Laboratory Results 09/29/20 00:11: HCV RNA Quant (PCR) [id number], HCV RNA (PCR) IU log10 6.845, HCV RNA PCR Test Info Comment Current Medications Acetaminophen (Acetaminophen 325 Mg Tablet) 650 mg PO Q6H PRN PRN PRN Reason: Pain Score 1-10 Last Admin: 10/02/20 06:05 Dose: 650 mg Documented by: Buprenorphine HCl (Buprenorphine Hcl 2 Mg Tab.Subl) 2 mg SL Q8H DANA; Taper Stop: 10/03/20 22:29 Last Admin: 10/02/20 06:05 Dose: 2 mg Documented by: Clonidine (Clonidine Hcl 0.1 Mg Tablet) 0.1 mg PO Q8H PRN PRN PRN Reason: RESTLESSNESS Last Admin: 10/01/20 21:58 Dose: 0.1 mg Documented by: Dicyclomine HCl (Dicyclomine 10 Mg Capsule) 20 mg PO Q6H PRN PRN PRN Reason: Abdominal Discomfort Last Admin: 10/02/20 06:05 Dose: 20 mg Documented by: Gabapentin (Gabapentin 300 Mg Capsule) 300 mg PO Q8H PRN PRN PRN Reason: moderate to severe anxiety Last Admin: 10/01/20 14:02 Dose: 300 mg Documented by: Hydroxyzine Pamoate (Hydroxyzine Xochitl 25 Mg Capsule) 50 mg PO Q6H PRN PRN PRN Reason: mild anxiety Last Admin: 10/02/20 02:29 Dose: 50 mg Documented by: Loperamide HCl (Loperamide 2 Mg Capsule) 2 mg PO Q4H PRN PRN PRN Reason: LOOSE STOOLS Methocarbamol (Methocarbamol 750 Mg Tablet) 1,500 mg PO Q6H PRN PRN PRN Reason: MUSCLE SPASM Last Admin: 10/02/20 06:05 Dose: 1,500 mg Documented by: Nicotine (Nicotine 21 Mg Patch) 21 mg TRANSDERM. DAILY DANA Last Admin: 10/01/20 08:59 Dose: 21 mg Documented by: Ondansetron HCl (Ondansetron 8 Mg Tablet) 8 mg PO Q8H PRN PRN PRN Reason: NAUSEA Last Admin: 10/01/20 05:54 Dose: 8 mg Documented by: Trazodone HCl (Trazodone 100 Mg Tablet) 100 mg PO QHS PRN PRN PRN Reason: INSOMNIA Last Admin: 09/30/20 22:16 Dose: 100 mg Documented by: Medical Necessity - Tobacco Use Smoking Status: Current every day smoker Tobacco Use: Cigarettes Assessment/Plan All Active Problems Acute opioid withdrawal (Acute) Status post vaginal delivery (Acute) 1. Acute opioid withdrawal, patient admits to using heroin Urine tox positive for amphetamines, methamphetamines and cannabinoids Patient continues to require medication and monitoring for withdrawal based on regular assessment and remains appropriate for ASAM level 4.0 Currently stable, on the buprenorphine withdrawal protocol 2. Status post vaginal delivery of baby on 09/30/20 Baby is being monitored for opioid withdrawal in the [facility] Would monitor for depression 3. Nicotine dependence, on dependence 4. DVT PPx - low risk, early ambulation Inpatient E&M: 55275 Subs Hosp L2
[2020-10-02 09:54] VITALS: BP 134/81; PULSE 88; RESP 16; TEMP 36.6; O2SAT 98
[2020-10-02] MEDS: Gabapentin 300 MG Capsule PO ×2 (10:01→19:36)
[2020-10-02 14:41] VITALS: BP 128/83; PULSE 83; RESP 16; TEMP 36.9; O2SAT 99
[2020-10-02 17:08] VITALS: BP 146/95; PULSE 76; RESP 16; TEMP 36.8; O2SAT 98
[2020-10-02] MEDS: cloNIDine HCl 0.1 MG Tablet PO (19:36)
[2020-10-02 19:47] VITALS: BP 157/108; PULSE 76; RESP 20; TEMP 36.4; O2SAT 99
--- NOTE | 2020-10-02 19:53 | NURSING ---
PER PT REQUEST, SPOKE TO FE MUSTAFA IN [facility] RE: HER SON'S CONDITION.
[2020-10-03 06:34] VITALS: BP 133/94; PULSE 82; RESP 16; TEMP 36.8; O2SAT 98
--- NOTE | 2020-10-03 09:11 | NURSING ---
Talked with geriatric case manager Heide Smith regarding discharge order from Dr. Navarro. Aware she made phone calls and advised this nurse that the DC order needs cancelled stating it is a transfer of services not an actual discharge.
[2020-10-03 09:21] VITALS: BP 146/94; PULSE 90; RESP 16; TEMP 36.4; O2SAT 97
--- NOTE | 2020-10-03 09:29 | ADDICTION ---
This policy writer met with patient in her room to provide support and to plan for d/c as she plans to d/c today. Patient was resistant to direct admitting into [facility]'s Residential Program but did agree to direct admit following meeting with her son today in the OB. This policy writer communicated this plan to charge nurse. charge nurse to contact client's physician for discharge. This policy writer will communicate with [facility] department re: client's d/c to provide transportation to main office.
[2020-10-03] MEDS: Dicyclomine 10 MG Capsule 20 MG PO (09:38)
--- NOTE | 2020-10-03 10:08 | DCINST_ITS ---
- Discharge Diagnoses Current Active Problems: Current Active and Chronic Problems Tobacco abuse (Chronic) Acute opioid withdrawal (Acute) Status post vaginal delivery (Acute) Opioid dependence (Chronic) You will use the following diet at home:: No restrictions Your food should be the consistency of: Regular Your liquids should be the consistency of: Regular/Thin Discharge Activity: Return to Normal Activity, May Drive, May Shower May resume sexual activity in: 2 weeks Weight Bearing Status: Weight bearing as tolerated Call your doctor if your incision/area has: Foul Smelling Discharge Call your doctor if you observe: Fever of 101 or Higher, Shortness of breath, Chest pain Allergies/Adverse Reactions: Allergies amoxicillin [From Augmentin] Allergy (Verified 09/29/20 21:06) Hives clavulanic acid [From Augmentin] Allergy (Verified 09/29/20 21:06) Hives Medications to take at Discharge Vits [Prenatabs FA ] 1 tab PO DAILY 09/29/20 Primary Care Physician: Care Physician,No Primary [Primary Care Provider] - Test Results: Test results from this visit will be discussed in further detail at your follow- up appointment, if applicable. Please Follow Up With: Bear Navarro MD Please Follow Up With: 180 as scheduled Proposed Discharge Date: 09/30/20
[2020-10-03] MEDS: Buprenorphine HCl 2 MG TAB.SUBL SL (10:32)
--- NOTE | 2020-10-03 10:39 | NURSING ---
attempted to call Iraida from 180, left vmail letting her know per Primary RN she is giving patient her discharge papers. Packet for residential given.
--- NOTE | 2020-10-03 11:10 | CASEMGMT ---
Social Work MS3 Reason for intervention: [facility] admission, collaboration with [facility] Yudy Rust and also with patient/mother of baby (MOB) Ciara Roque. PHQ9 follow up. Summary: Collaboration with Yudy Rust about treatment recommendation for this patient. Residential is an option if patient will agree. [facility] can provide transportation for patient to the agency and will need patient to arrive before 1400. Met with patient this date to check in and see how doing. Explored how patient is feeling with the offer of residential treatment. Patient replots that she really wants to have her baby with her at the residential. Acknowledged feelings and refocused patient on importance of self care now, in order to help get to longer term goals of having children back in MOB's care. This quality analyst/technical writer agreed to update [facility] on MOB completing the detox program and consideration of residential. Answered MOB's questions as able, supportive encouragement and reflection offered. Maxi RN in room and indicates patient is discharged from the R[facility] program. Ellis from Yudy Rust from [facility] and patient can be picked up at 1330 to [facility] for final decision making in next steps for treatment. Discussed with MOB that able to arrange for MOB to see her baby in the SCN until transport arrives. MOB in agreement to stay in the SCN and visit with baby for the until transport arrives. Assessment: Patient calm and cooperative with social and political studies professor, expressing much thanks and gratitude for the support offered by this quality analyst/technical writer and by the hospital as whole. Patient appropriately tearful when talking about social stressors. Provided patient with PHQ9 handout on what to look for with depression, as well as local resources for support. Patient's score on the PHQ9 is a 3. Patient will have access to counseling while in residential to help support any mental health needs that arise. Plan: Patient discharging from [facility] today, with [facility] helping to coordinate aftercare; Likely residential treatment. Patient will see baby before going to [facility] today. No other services requested or indicated for this patient. Further social work support will be offered by social work assigned to the [facility]. -NOEL Roach, TYPEWRITER TESTER
[2020-10-04 20:07] LABS: Amphetamine Positive (.); AmphetamineGC/MS Conf >3000 ng/mL (Cutoff=500); Methamphetamines Positive (.)
[2020-10-05 09:12] LABS: Amphetamine Ur Confirm Positive (.)
--- NOTE | 2020-10-05 11:00 | PCM.DC.SUM ---
Discharge Date and Diagnosis - Problem List Patient Problems: Active and Suspected Problems Acute opioid withdrawal (Acute) Status post vaginal delivery (Acute) Date of Admission: 09/30/20 Date of Discharge: 10/03/20 - Primary Discharge Diagnosis Acute Problems: Active Problems Acute opioid withdrawal (Acute) Status post vaginal delivery (Acute) - Secondary Discharge Diagnosis Chronic Problems: Chronic Problems Tobacco abuse (Chronic) Opioid dependence (Chronic) Hospital Course and Treatment Operations: None Procedures: None Summary of Care Provided: The patient is a 30 year old F who was admitted to [place] [address] under the medical stabilization program for opiate withdrawal after having a vaginal delivery and I would be the day before. Patient's was having opiate withdrawal and the patient requested opiate withdrawal services herself. Patient was admitted to [place] [address], medicines were entered using the opiate stabilization order set, there were no major problems during her hospital stay. She was seen by 180 and agreed to go to an inpatient program at the time of discharge. On 10/03/2020, patient was seen and examined: On examination she appeared in good health and spirits, she does not appear to be in any distress. Vital signs as documented. Skin warm and dry and without overt rashes. Neck without JVD, thyroid appears normal, trachea is midline, neck is supple. Lungs clear, normal air movement was noted. Heart exam notable for regular rhythm, normal sounds and absence of murmurs, rubs or gallops. Abdomen unremarkable and without evidence of organomegaly, masses, or abdominal aortic enlargement, bowel sounds are present in all 4 quadrants, no abdominal tenderness was noted. Extremities nonedematous, no cyanosis was noted, no clubbing was noted. Neuro: Cranial nerves II through XII are grossly intact, no focal motor deficits were noted, sensation to light touch and pinprick is intact, motor exam 5/5 throughout. Psych: Patient is alert and oriented x3, she does not appear anxious or depressed, she does not appear agitated. Patient appears stable for discharge to inpatient 180 on 10/03/20. Patient Problems: Active and Suspected Problems Acute opioid withdrawal (Acute) Status post vaginal delivery (Acute) - Physical Exam Vitals/I&O's: Vital Signs Temp Pulse Resp BP Pulse Ox 97.6 F L 90 16 146/94 H 97 10/03/20 09:21 10/03/20 09:21 10/03/20 09:21 10/03/20 09:21 10/03/20 09:21 Oxygen Delivery Method Room Air Weight: 80.739 kg Body Mass Index (BMI) 26.2 Laboratory Results 09/30/20 01:00: Urine Amphetamine Positive H, U Amphetamine (GC/MS) >3000, U Amphetamines Confirm Positive H, Urine Methamphetamines Positive H, U Methamphetamin GC/MS >3000 Discharge Diet: No Restrictions Discharge Activity: Return to Normal Activity, May Drive, May Shower May resume sexual activity in: 2 weeks Weight Bearing Status: Weight bearing as tolerated Call your doctor if your incision/area has: Foul Smelling Discharge Call your doctor if you observe: Fever of 101 or Higher, Shortness of breath, Chest pain Home Medications: Medications to take at Discharge Vits [Prenatabs FA ] 1 tab PO DAILY 09/29/20 Primary Care Physician: Care Physician,No Primary [Primary Care Provider] - Please Follow Up With: Bear Navarro MD Please Follow Up With: 180 as scheduled Disposition: Inpatient [facility] program Minutes spent on discharge:: 32 Patient Condition:: Stable Medical Necessity - Tobacco Use Smoking Status: Current every day smoker Tobacco Use: Cigarettes Meaningful Use Info Meaningful Use Diagnoses (Choose all that apply): None applicable Inpatient E&M: 72603 Disch Hosp
[2020-10-06 02:10] LABS: Rapid Plasmin Reagin (RPR) NONREACTIVE (NONREACTIVE)
--- NOTE | 2020-11-02 10:34 | CASEMGMT ---
Social Work Labor and Delivery unit Call made to [facility] at [phone], and spoke with Abel in the intake department. This process description writer reported the results of baby's drug screens that had not been received back prior to this patient/mother of baby or infant to discharge from hospital. Based on infant's drug screen results, it would appear that MOB was in fact using fentanyl during this . Also reported patient's urine confirmation screen showing positive for methamphetamines. There is a current case open with [facility] in [place] reports plan to let the worker for this family know of this updated information. Refer to baby's chart, which is linked directly through this mother's delivery record for details of drug screens. -NOEL Roach, LIFT MECHANIC *Information from this note generated by the [employer] system.*
== END 2020-10-03 11:03 | disposition home or self-care (01) | DRG 561 ==
LOC: WP 09-30 13:06 → MS3 10-01 00:21
PROVIDERS: Hospitalist; Admitting Provider Obstetrics & Gynecology; Referring Provider Obstetrics & Gynecology; Visit Provider Internal Medicine
DX: O99.325 Drug use complicating the puerperium (principal); F11.23 Opioid dependence with withdrawal; F12.90 Cannabis use, unspecified, uncomplicated; F15.90 Other stimulant use, unspecified, uncomplicated; O99.345 Other mental disorders complicating the puerperium; F43.10 Post-traumatic stress disorder, unspecified; F41.9 Anxiety disorder, unspecified; F32.9 Major depressive disorder, single episode, unspecified; O99.335 Smoking (tobacco) complicating the puerperium; F17.210 Nicotine dependence, cigarettes, uncomplicated; Z79.899 Other long term (current) drug therapy; Z23 Encounter for immunization
CPT/HCPCS: 36415; 80053; 80307; 85025; 86592; 86703; 86762; 86803; 86850; 86900; 86901; 87340; 87522; A4216